=== PATIENT | female | born 1960 | race African-American/Black ===

== ENCOUNTER → 2017-04-30 | Day surgery (SDC) | payer OTHER ==
[~2017-04-30] MED LIST: ALBUTEROL20 ml INH; ALL DAY ALLERGY10 M3 PO; FLEXERIL PO; FLEXERIL10 MG PO; HYDRALAZINE HCL25 MG PO; LANSOPRAZOLE30 MG PO; LORTAB 7.5-5001 TAB PO; MAGNESIUM500 MG PO; MEDROL PO; METOPROLOL TAR25 MG; NAPROSYN500 MG PO; NEURONTIN800 MG; NORVASC10 MG PO; OXYCODON-ACETA1 EAC1 PO; RESTORIL7.5 MG PO; TYLOX 5-500 CA1 EACH PO; VICODIN 5/1 TAB 5/50 PO; VITAMIN D250000 UNIT PO; ZYPREXA7.5 MG PO
--- NOTE | ~2017-04-30 | OR ---
Unit #: [id number] #: [id number] Patient: VU FROST [id number] [address] [address] [id number] O MR#: [id number] NAME: VU FROST ROOM: Date of Procedure: 04/30/2017 Admission Date: 04/30/2017 Surgeon: Ever Gonzalez M.D. : 1960 Attending Physician: Ever Gonzalez M.D. Primary Care Physician: Christiane Yusuf Aprn OPERATIVE REPORT PREOPERATIVE DIAGNOSIS Arthrofibrosis, right total knee. POSTOPERATIVE DIAGNOSIS Arthrofibrosis, right total knee. PROCEDURE PERFORMED Manipulation, right total knee. ANESTHESIA General. DESCRIPTION OF PROCEDURE The patient was brought to the operating room, given a general anesthetic. Prior to the surgery was -5 of the extension with flexion to about 70. We were able to manipulate her knee gaining much improved flexion. The palpable and 105 degrees and extension, we gained maybe 1 or 2 degrees. After ranging the knee multiple times, she had her general anesthetic reversed and was transferred to the recovery room. No complications. Dictated by... Marcos Da Silva/susi TD: 05/01/2017 00:39 JOB #: [id number] OPERATIVE REPORT Page 1 of 1 X Ever Gonzalez MD X PROCEDURE OPERATIVE NOTE
[2017-04-30 08:48] LABS: URINE SOURCE CLEAN CATCH
[2017-04-30 08:52] LABS: URINE APPEARANCE CLEAR; URINE BILIRUBIN NEG (NEG); URINE BLOOD NEG (NEG); URINE COLOR YELLOW; URINE GLUCOSE NEG (NEG); URINE KETONE NEG (NEG); URINE LEUKOCYTE ESTERASE 1+ (NEG); URINE NITRATE NEG (NEG); URINE PH 7.5 (5-8); URINE PROTEIN NEG (NEG); URINE SPECIFIC GRAVITY 1.017 (1.003-1.035)
[2017-04-30 08:54] LABS: CULTURE INDICATED? NO; U HYALINE CASTS AUWI 0-2 /[LPF]; URBCS1 AUWI 0-2 /[HPF] (0-2); URINE BACTERIA AUWI NEG (NEGATIVE); URINE SQUAMOUS EPITHELIAL CELL FEW /[HPF]
[2017-04-30 09:13] LABS: HEMATOCRIT 45.3 % (35.0-45.0); HEMOGLOBIN 14.6 gm/dL (12.0-16.0); MEAN CELL VOLUME 88.9 FL (83-96); MEAN CORPUSCULAR HEMOGLOBIN 28.7 PG (28-34); MEAN CORPUSCULAR HGB CONC 32.2 g/dL (30-36); MEAN PLATELET VOLUME 9.1 FL (6.5-11.5); RED BLOOD COUNT 5.09 X10e (3.90-5.30); RED CELL DISTRIBUTION WIDTH 14.5 % (11.0-15.5); WHITE BLOOD COUNT 6.8 X10e3 (4.0-10.5)
[2017-04-30 09:47] LABS: CALCIUM SERUM 9.1 mg/dL (8.4-10.2); CREATININE SERUM 0.6 mg/dL (0.6-1.4); GLOM FILT RATE Estimated 118.1 mL/min (>60); POTASSIUM 4.3 mmol/L (3.5-5.1)
== END | disposition home or self-care (01) ==
LOC: CSUR 08:17
PROVIDERS: Orthopaedic Surgery
DX: M24.661 Ankylosis, right knee (principal); J45.909 Unspecified asthma, uncomplicated; K21.9 Gastro-esophageal reflux disease without esophagitis; I10 Essential (primary) hypertension; F41.9 Anxiety disorder, unspecified; M79.7 Fibromyalgia; Z86.73 Personal history of transient ischemic attack (TIA), and cerebral infarction without residual deficits; Z88.2 Allergy status to sulfonamides; Z88.1 Allergy status to other antibiotic agents; Z91.040 Latex allergy status; Z79.899 Other long term (current) drug therapy; Z96.651 Presence of right artificial knee joint; Z98.890 Other specified postprocedural states
CPT/HCPCS: 80048; 81003; 85027; J1885; J2270